=== PATIENT | male | born 1990 | race Caucasian/White ===

== ENCOUNTER 2017-07-11 13:16 | Day surgery (SDC) | payer OTHER ==
[~2017-07-11] VITALS: Ht 190.5 cm; Wt 98.1 kg
[~2017-07-11 13:16] MED LIST: BUPIVACAINE/PF 0.25% ONE; NEOSPORIN OINT, 15GM ONE
[2017-07-11] MEDS ORDERED: MIDAZOLAM 1 MG/ML, 2ML ONE (13:30)
[2017-07-11] MEDS ORDERED: FENTANYL PF 100 MCG/2ML ONE (13:30)
[2017-07-11] MEDS ORDERED: PROPOFOL 10 MG/ML, 20ML ONE (13:31)
[2017-07-11] MEDS ORDERED: CEFAZOLIN 1,000 MG ONE ×2 (13:31)
[2017-07-11] MEDS ORDERED: strattera PO (13:37)
[2017-07-11 13:38] VITALS: BP 123/79
[2017-07-11] MEDS ORDERED: LACTATED RINGERS 1,000 ML IV SCH (13:43)
[2017-07-11] MEDS ORDERED: ACETAMINOPHEN 325 MG TABLET PO PRN (14:00)
[2017-07-11] MEDS ORDERED: FENTANYL PF 100 MCG/2ML IV PRN (14:00)
[2017-07-11] MEDS ORDERED: PROMETHAZINE 25 MG/ML, 1ML IV PRN (14:00)
[2017-07-11] MEDS ORDERED: OXYcodone 5 MG/5 ML ORAL.SOL UDC PO PRN (14:00)
[2017-07-11] MEDS ORDERED: DEXAMETHASONE 4 MG/ML, 1ML ONE ×2 (14:37)
[2017-07-11] MEDS ORDERED: ONDANSETRON 2MG/ML, 2ML ONE (14:37)
[2017-07-11] MEDS ORDERED: KETOROLAC 30 MG/1 ML ONE (14:41)
[2017-07-11] MEDS ORDERED: OXYcodone 5 MG/5 ML ORAL.SOL UDC ONE (15:33)
[2017-07-11] MEDS ORDERED: ACETAMINOPHEN 650 MG/20.3 ML UDC ONE (15:33)
== END 2017-07-11 17:55 ==
LOC: OUT 13:16
PROVIDERS: ATTEND Plastic Surgery
DX: S62.306A Unspecified fracture of fifth metacarpal bone, right hand, initial encounter for closed fracture (principal); X58.XXXA Exposure to other specified factors, initial encounter; Y93.89 Activity, other specified; Y92.89 Other specified places as the place of occurrence of the external cause; Y99.8 Other external cause status
CPT/HCPCS: 26615; 73120; 76000; J0690; J1100; J1885; J2250; J2405; J2704; J3010; J7120; J3490